=== PATIENT | female | born 1955 | race Caucasian/White ===

== ENCOUNTER 2017-12-10 14:49 | Day surgery (SDC) | payer BC ==
[2017-12-10] MEDS ORDERED: Promethazine 25 MG/ML SDV IM ONE (15:00)
--- NOTE | 2017-12-10 15:03 | EDM.PDOC ---
ED HPI GENERAL MEDICAL PROBLEM - General Chief Complaint: ENT Problem Stated Complaint: FOOD STUCK IN HER THROAT Time Seen by Provider: 12/10/17 14:53 Source of Information: Reports: Patient History Limitations: Reports: No Limitations - History of Present Illness INITIAL COMMENTS - FREE TEXT/NARRATIVE: History of present illness: []Patient ate [employer] prior to arrival and took a small bite and food got stuck in her throat. Swallow her secretions. This has happened in the past she states Phenergan usually works. Review of systems: As per history of present illness and below otherwise all systems reviewed and negative. Past medical history: As per history of present illness and as reviewed below otherwise noncontributory. Surgical history: As per history of present illness and as reviewed below otherwise noncontributory. Social history: No reported history of drug or alcohol abuse. Family history: As per history of present illness and as reviewed below otherwise noncontributory. Physical exam: General: Well developed, well nourished in NAD HEENT: Atraumatic, normocephalic, pupils reactive, negative for conjunctival pallor or scleral icterus, mucous membranes moist, throat clear, neck supple, nontender, trachea midline. Lungs: Clear to auscultation, breath sounds equal bilaterally, chest nontender. Heart: S1S2, regular, negative for clicks, rubs, or JVD. Abdomen: Soft, nondistended, nontender. Negative for masses or hepatosplenomegaly. Negative for costovertebral tenderness. Pelvis: Stable nontender. Genitourinary: Deferred. Rectal: Deferred. Extremities: Atraumatic, negative for cords or calf pain. Neurovascular unremarkable. Neuro: Awake, alert, oriented. Cranial nerves II through XII unremarkable. Cerebellum unremarkable. Motor and sensory unremarkable throughout. Exam nonfocal. Diagnostics: []Chest x-ray done negative Therapeutics: []Glucagon and Phenergan given IV without alleviation of food impaction Impression: []Esophageal obstruction meat impaction Plan: []Dr. Martinez consulted after meds failed to alleviate the impaction. Patient is taken to the OR for endoscopy for removal of impaction. Definitive disposition and diagnosis as appropriate pending reevaluation and review of above. throat Pain Score (Numeric/FACES): 2 - Related Data Allergies Allergy/AdvReac Type Severity Reaction Status Date / Time eucalyptus Allergy Other Verified 12/10/17 15:05 Iodine and Iodide Containing Allergy Other Verified 12/10/17 15:05 Produc Penicillins Allergy Other Verified 12/10/17 15:05 shellfish derived Allergy Other Verified 12/10/17 15:05 Sulfa (Sulfonamide Allergy Other Verified 12/10/17 16:38 Antibiotics) Home Meds: Home Meds Albuterol [Ventolin HFA] 2 inh IH Q4H PRN 12/10/17 [History] Fluticasone/Salmeterol [Advair 250-50 Diskus] 50 - 500 inh IH DAILY 12/10/17 [ History] Insulin Glarg,Human.Rec.Analog [LantUS Solostar] 20 units SUBCUT BEDTIME [History] Lansoprazole [Prevacid] 30 mg PO DAILY 12/10/17 [History] Metoprolol Succinate 100 mg PO DAILY 12/10/17 [History] Montelukast [Singulair] 10 mg PO BEDTIME 12/10/17 [History] Spironolactone [Aldactone] 25 mg PO DAILY 12/10/17 [History] Verapamil HCl [Verapamil Sr] 240 mg PO DAILY 12/10/17 [History] atorvaSTATin [Lipitor] 10 mg PO DAILY 12/10/17 [History] metFORMIN [Glucophage] 1,000 mg PO BID 12/10/17 [History] ED ROS GENERAL - Review of Systems Review Of Systems: See Below (See history of present illness) ED EXAM, GI/ABD - Physical Exam Exam: See Below (See history of present illness) Course - Vital Signs Last Recorded V/S: Last Vital Signs Temp 97.4 F 12/10/17 15:06 Pulse 75 12/10/17 15:19 Resp 20 12/10/17 15:19 BP 169/91 H 12/10/17 15:19 Pulse Ox 98 12/10/17 15:19 - Orders/Labs/Meds Meds: Medications Discontinued Medications Generic Name Dose Route Start Last Admin Trade Name Freq PRN Reason Stop Dose Admin Glucagon 1 mg 12/10/17 15:04 12/10/17 15:23 Glucagen IM 12/10/17 15:05 Not Given ONETIME ONE Glucagon Confirm 12/10/17 15:07 12/10/17 15:16 Glucagen Administered 12/10/17 15:08 Not Given Dose 1 mg .ROUTE .STK-MED ONE Glucagon 1 mg 12/10/17 15:15 12/10/17 15:16 Glucagen IVPUSH 12/10/17 15:16 1 mg ONETIME ONE Administration Promethazine HCl 25 mg 12/10/17 15:00 12/10/17 15:12 Phenergan IM 12/10/17 15:01 25 mg ONETIME ONE Administration Departure - Departure Time of Disposition: 16:37 Disposition: Still A Patient 30 Condition: Good Clinical Impression: Obstruction of esophagus due to food impaction - Discharge Information
[2017-12-10] MEDS ORDERED: Glucagon,Human Recombinant 1 MG Vial IM ONE (15:04)
[2017-12-10] MEDS ORDERED: Glucagon,Human Recombinant 1 MG Vial ONE (15:07)
[2017-12-10] MEDS ORDERED: Glucagon,Human Recombinant 1 MG Vial IVPUSH ONE (15:15)
--- NOTE | 2017-12-10 15:48 | CR ---
EXAMINATION: Portable chest radiograph. HISTORY: Shortness of breath. FINDINGS: The trachea is midline. The cardiomediastinal silhouette is within normal limits. No pulmonary infilt rates, effusions or pneumothorax. There is a left-sided richa catheter noted with tip in good positio n. Osseous structures appear unremarkable. IMPRESSION: No acute cardiopulmonary process.
--- NOTE | 2017-12-10 16:19 | PCM.HP ---
H&P History of Present Illness - General Date of Service: 12/10/17 Source of Information: Patient History Limitations: Reports: Respiratory Distress - History of Present Illness Initial Comments - Free Text/Narative: Patient is a 62 year old female who presented to the ED with a food bolus impaction. She had the same thing happen 10 years ago. She was scoped by Dr. Ritchie who did not see a stricture. She has heartburn but doesnt take anything for it. I cannot get anymore history from her as she is retching and vomiting up saliva as I try to interview her. She took a bite of roast beef this afternoon and felt the food get stuck. SHe was given phenergan and glucagon in the ED with no improvement. throat Pain Score (Numeric/FACES): 2 - Related Data Allergies/Adverse Reactions: Allergies Allergy/AdvReac Type Severity Reaction Status Date / Time eucalyptus Allergy Other Verified 12/10/17 15:05 Iodine and Iodide Containing Allergy Other Verified 12/10/17 15:05 Produc Penicillins Allergy Other Verified 12/10/17 15:05 shellfish derived Allergy Other Verified 12/10/17 15:05 Past Medical History Cardiovascular History: Reports: Hypertension Endocrine/Metabolic History: Reports: Diabetes, Type II Oncologic (Cancer) History: Reports: Hodgkin's Lymphoma Social & Family History - Family History Family Medical History: Noncontributory - Tobacco Use Smoking Status *Q: Never Smoker Second Hand Smoke Exposure: No - Caffeine Use Caffeine Use: Reports: Coffee, Energy Drinks, Soda, Tea - Recreational Drug Use Recreational Drug Use: No H&P Review of Systems - Review of Systems: Review Of Systems: ROS reveals no pertinent complaints other than HPI. Exam - Exam Exam: See Below - Vital Signs Vital Signs: Last Vital Signs Temp 36.3 C 12/10/17 15:06 Pulse 75 12/10/17 15:19 Resp 20 12/10/17 15:19 BP 169/91 H 12/10/17 15:19 Pulse Ox 98 12/10/17 15:19 Weight: 97.069 kg - Exam General: Alert, Oriented HEENT: Conjunctiva Clear Neck: Supple, Trachea Midline Lungs: Clear to Auscultation, Normal Respiratory Effort Cardiovascular: Regular Rate, Regular Rhythm GI/Abdominal Exam: Normal Bowel Sounds, Soft, Non-Tender Extremities: Normal Inspection, Normal Range of Motion *Q Meaningful Use (ADM) - VTE *Q VTE Criteria *Q: - Stroke *Q Stroke Criteria *Q: - AMI *Q AMI Criteria *Q: - Problem List (1) Food impaction of esophagus SNOMED Code(s): 6401950 ICD Code: T18.128A - FOOD IN ESOPHAGUS CAUSING OTHER INJURY, INITIAL ENCOUNTER Status: Acute Current Visit: Yes Problem List Initiated/Reviewed/Updated: Yes Assessment/Plan Comment:: The patient is in acute distress and is constantly vomiting. We discussed the need for an EGD and food bolus removal. She understands we will be intubating her. We discussed the risks including bleeding or perforation. She understands and wishes to proceed.
[2017-12-10] MEDS ORDERED: fentaNYL 100 MCG/2 ML SDV ONE (16:36)
[2017-12-10] MEDS ORDERED: Propofol 200 MG/20 ML SDV ONE (16:36)
[2017-12-10] MEDS ORDERED: Midazolam 1 MG/ML 2 ML SDV ONE (16:36)
[2017-12-10] MEDS ORDERED: Succinylcholine/Normal Saline 200 MG/10 ML Syringe ONE (16:37)
[2017-12-10] MEDS ORDERED: Lidocaine 2% Jelly 30 ML Tube ONE (16:40)
--- NOTE | 2017-12-10 16:51 | PCM.PREANE ---
Preanesthetic Assessment - Procedure Proposed Procedure: egd for food impaction - Anesthesia/Transfusion/Family Hx Anesthesia History: Prior Anesthesia Without Reaction Family History of Anesthesia Reaction: No - Review of Systems General: No Symptoms Pulmonary: Wheezing (expiratory) Cardiovascular: No Symptoms Gastrointestinal: Nausea, Vomiting Neurological: No Symptoms Other: Reports: None - Physical Assessment NPO Status Date: 12/10/17 NPO Status Time: 12:30 O2 Sat by Pulse Oximetry: 100 Respiratory Rate: 20 Vital Signs: Last Vital Signs Temp 36.6 C 12/10/17 16:36 Pulse 76 12/10/17 16:36 Resp 20 12/10/17 16:36 BP 177/78 H 12/10/17 16:36 Pulse Ox 100 12/10/17 16:36 Height: 1.57 m Weight: 97.069 kg ASA Class: 3 Mental Status: Alert & Oriented x3 Dentition: Reports: Partial Thyro-Mental Finger Breadths: 3 Mouth Opening Finger Breadths: 3 ROM/Head Extension: Full Lungs: Wheezing Cardiovascular: Regular Rate, Regular Rhythm, Tachycardia - Allergies Allergies/Adverse Reactions: Allergies Allergy/AdvReac Type Severity Reaction Status Date / Time eucalyptus Allergy Other Verified 12/10/17 15:05 Iodine and Iodide Containing Allergy Other Verified 12/10/17 15:05 Produc Penicillins Allergy Other Verified 12/10/17 15:05 shellfish derived Allergy Other Verified 12/10/17 15:05 Sulfa (Sulfonamide Allergy Other Verified 12/10/17 16:38 Antibiotics) - Blood Blood Available: No Product(s) Available: None - Acknowledgements Anesthesia Type Planned: General Anesthesia Pt an Appropriate Candidate for the Planned Anesthesia: Yes Alternatives and Risks of Anesthesia Discussed w Pt/Guardian: Yes Pt/Guardian Understands and Agrees with Anesthesia Plan: Yes PreAnesthesia Questionnaire Cardiovascular History: Reports: Hypertension Endocrine/Metabolic History: Reports: Diabetes, Type II Oncologic (Cancer) History: Reports: Hodgkin's Lymphoma - SUBSTANCE USE Smoking Status *Q: Never Smoker Second Hand Smoke Exposure: No Recreational Drug Use History: No - HOME MEDS Home Medications: Home Meds Albuterol [Ventolin HFA] 2 inh IH Q4H PRN 12/10/17 [History] Fluticasone/Salmeterol [Advair 250-50 Diskus] 50 - 500 inh IH DAILY 12/10/17 [ History] Insulin Glarg,Human.Rec.Analog [LantUS Solostar] 20 units SUBCUT BEDTIME [History] Lansoprazole [Prevacid] 30 mg PO DAILY 12/10/17 [History] Metoprolol Succinate 100 mg PO DAILY 12/10/17 [History] Montelukast [Singulair] 10 mg PO BEDTIME 12/10/17 [History] Spironolactone [Aldactone] 25 mg PO DAILY 12/10/17 [History] Verapamil HCl [Verapamil Sr] 240 mg PO DAILY 12/10/17 [History] atorvaSTATin [Lipitor] 10 mg PO DAILY 12/10/17 [History] metFORMIN [Glucophage] 1,000 mg PO BID 12/10/17 [History] - CURRENT (IN HOUSE) MEDS Current Meds: Current Medications Discontinued Medications Fentanyl (Sublimaze) Confirm Administered Dose 100 mcg .ROUTE .STK-MED ONE Stop: 12/10/17 16:37 Glucagon (Glucagen) 1 mg IM ONETIME ONE Stop: 12/10/17 15:05 Last Admin: 12/10/17 15:23 Dose: Not Given Glucagon (Glucagen) Confirm Administered Dose 1 mg .ROUTE .STK-MED ONE Stop: 12/10/17 15:08 Last Admin: 12/10/17 15:16 Dose: Not Given Glucagon (Glucagen) 1 mg IVPUSH ONETIME ONE Stop: 12/10/17 15:16 Last Admin: 12/10/17 15:16 Dose: 1 mg Lidocaine HCl (Xylocaine-Mpf 1%) Confirm Administered Dose 5 ml .ROUTE .STK-MED ONE Stop: 12/10/17 16:38 Lidocaine HCl (Xylocaine 2% Jelly) Confirm Administered Dose 30 ml .ROUTE .STK- MED ONE Stop: 12/10/17 16:41 Midazolam HCl (Versed 1 Mg/Ml) Confirm Administered Dose 2 mg .ROUTE .STK-MED ONE Stop: 12/10/17 16:37 Promethazine HCl (Phenergan) 25 mg IM ONETIME ONE Stop: 12/10/17 15:01 Last Admin: 12/10/17 15:12 Dose: 25 mg Propofol (Diprivan 20 Ml) Confirm Administered Dose 200 mg .ROUTE .STK-MED ONE Stop: 12/10/17 16:37 Succinylcholine Chloride (Succinylcholine In Ns Pf) Confirm Administered Dose 200 mg .ROUTE .[facility] ONE Stop: 12/10/17 16:38
--- NOTE | 2017-12-10 17:53 | PCM.OPNOTE ---
- General Post-Op/Procedure Note Date of Surgery/Procedure: 12/10/17 Operative Procedure(s): EGD and food bolus disimpaction Findings: 10 cm piece of impacted meat 20 cm at the teeth. No evidence of stricture at the site or perforation Pre Op Diagnosis: Food bolus impaction Post-Op Diagnosis: same Anesthesia Technique: General ET Tube Primary Surgeon: Edna Martinez Condition: Serious
--- NOTE | 2017-12-10 18:05 | PCM.POSTAN ---
POST ANESTHESIA ASSESSMENT - MENTAL STATUS Mental Status: Alert, Oriented - VITAL SIGNS Pulse Rate: 79 SaO2: 95 Resp Rate: 16 Blood Pressure: 173/90 - RESPIRATORY Respiratory Status: Respiratory Rate WNL, Airway Patent, O2 Saturation Stable - CARDIOVASCULAR CV Status: Pulse Rate WNL, Blood Pressure Stable - GASTROINTESTINAL GI Status: No Symptoms - PAIN Pain Score: 1 - POST OP HYDRATION Hydration Status: Adequate & Stable
--- NOTE | 2017-12-10 18:40 | PCM48HPAN ---
Post Anesthesia Note - EVALUATION WITHIN 48HRS OF ANESTHETIC Vital Signs in Normal Range: Yes Patient Participated in Evaluation: Yes Respiratory Function Stable: Yes Airway Patent: Yes Cardiovascular Function Stable: Yes Hydration Status Stable: Yes Pain Control Satisfactory: Yes Nausea and Vomiting Control Satisfactory: Yes Mental Status Recovered: Yes
--- NOTE | 2017-12-11 00:24 | OR ---
SURGEON: EDNA MARTINEZ MD DATE OF PROCEDURE: 12/10/2017 PREOPERATIVE DIAGNOSIS: Food impaction in the esophagus. POSTOPERATIVE DIAGNOSIS: Food impaction in the esophagus. PROCEDURE PERFORMED: EGD with disimpaction of food bolus. ENDOSCOPIST: Edna Martinez M.D. ANESTHESIA: General endotracheal anesthesia. INSTRUMENT USED: Olympus endoscope. EXTENT OF THE EXAM: To the stomach. FINDINGS: 10 cm piece of impacted meat 20 cm from the teeth. No evidence of stricture or perforation at the obstruction site. INDICATIONS: The patient is a 62-year-old female with a past medical history significant for food bolus impaction. Her last one was 10 years ago. In the past, Phenergan has worked for her. In the ER, she was given Phenergan and glucagon with no improvement in her symptoms. The patient was eating roast beef when this occured. The patient and I discussed the need for a diagnostic EGD and removal of the food bolus. We discussed the procedure, expected perioperative course, and risks including bleeding or perforation. The patient verbalized understanding and wished to proceed. PROCEDURE IN DETAIL: The patient was brought into the OR and placed on the OR cart in a slight beach chair position. Time-out was completed verifying the patient's name, age, date of , allergies, and procedure to be performed. Rapid sequence intubation was performed. The patient was safely intubated. A well lubricated endoscope was then placed in the patient's mouth and advanced under direct visualization to the esophagus. In the proximal esophagus, approximately 20 cm from the teeth, a food bolus was noted. A combination of techniques were used to morcellate the impacted food. The meat that she had eaten was shredded, which made it difficult to grasp onto the food bolus as a whole. Using a cold biopsy forceps in a [employer] grasper, I morcellated the meat until it was able to be pushed down into the stomach. Upon entering the stomach, the patient was noted to have an approximately 10 cm food bolus that had been stuck up proximally. I then pulled the scope back and inspected the area of the obstruction. There was some swelling and erythema, but no evidence of stricture or perforation. The scope was then removed from the patient and the procedure terminated. ENDOSCOPIC DIAGNOSIS: Impacted food bolus. RECOMMENDATIONS: The patient will be able to go home tonight. She should stick to a clear liquid diet for the next 24 hours. She should stick to a soft diet and avoid any meat or dry breads for the next week. I will start her on lansoprazole. She can follow up in clinic in 2 weeks. CLAUS STARKEY /[id number] MTDD
== END 2017-12-10 19:00 | disposition home or self-care (01) ==
LOC: MW.ED 14:49 → MW.SDS 16:13
PROVIDERS: ATTEND Surgery
DX: T18.128A Food in esophagus causing other injury, initial encounter (principal); I10 Essential (primary) hypertension; E78.5 Hyperlipidemia, unspecified; E11.9 Type 2 diabetes mellitus without complications; K21.9 Gastro-esophageal reflux disease without esophagitis; X58.XXXA Exposure to other specified factors, initial encounter; Z91.09 Other allergy status, other than to drugs and biological substances; Z90.49 Acquired absence of other specified parts of digestive tract; Z88.0 Allergy status to penicillin; Z91.013 Allergy to seafood; Z88.2 Allergy status to sulfonamides; Z79.4 Long term (current) use of insulin; Z79.899 Other long term (current) drug therapy
CPT/HCPCS: 43247; 71045; 96372; 96374; 99283; J1610; J2250; J2550; J3010; 00731; J2704